=== PATIENT | female | born 2000 | race Hispanic/Latino ===

== ENCOUNTER 2019-11-17 13:25 | Emergency (ER) | payer MEDICAID | END 2019-11-17 14:21 | disposition home or self-care (01) | LOC: EDH 13:25 | DX: U07.1 COVID-19 (principal) | CPT/HCPCS: 36415; 99283; U0003 ==

== ENCOUNTER 2020-12-04 22:16 | Emergency (ER) | payer MEDICAID ==
[~2020-12-04] VITALS: Ht 157.5 cm; Wt 79.8 kg
[2020-12-04 22:23] VITALS: BP 151/97
[2020-12-04] MEDS ORDERED: HYDROCODONE/ACETAMINOPHEN 5/325 MG TAB PO ONE (23:00)
[2020-12-04] MEDS ORDERED: KETOROLAC 60 MG VIAL (30MG/ML) IM ONE (23:00)
[2020-12-04] MEDS ORDERED: HYDROCODONE/ACETAMINOPHEN 5/325 MG TAB ONE (23:11)
[2020-12-04] MEDS ORDERED: PHARMACY COMMUNICATION MISC SCH (23:30)
[2020-12-04] MEDS ORDERED: IBUP-1552 PO (23:41)
== END 2020-12-04 23:46 | disposition home or self-care (01) ==
LOC: EDH 22:16
DX: S00.83XA Contusion of other part of head, initial encounter (principal); S00.03XA Contusion of scalp, initial encounter; I10 Essential (primary) hypertension; Z79.899 Other long term (current) drug therapy; Z88.6 Allergy status to analgesic agent; Y04.8XXA Assault by other bodily force, initial encounter; Y93.89 Activity, other specified; Y92.89 Other specified places as the place of occurrence of the external cause; Y99.8 Other external cause status
CPT/HCPCS: 70450; 70486; 70490; 81025; 96372; 99285; J1885

== ENCOUNTER 2022-07-01 23:19 | Emergency (ER) | payer MEDICAID ==
[~2022-07-01] VITALS: Ht 160 cm; Wt 73.0 kg
[~2022-07-01 23:19] MED LIST: IBUP-1552 PO
[2022-07-02 00:20] LABS: BASOPHILS % (AUTO) 0.1 % (0.0-5.0); EOSINOPHILS % (AUTO) 0.7 % (0.0-8.0); HEMATOCRIT 39.6 % (36-48); LYMPHOCYTES % (AUTO) 6.8 % (21.0-51.0); MEAN CORPUSCULAR HEMOGLOBIN 27.6 pg (27.0-33.0); MEAN CORPUSCULAR HGB CONC 32.6 g/dL (32.0-36.0); MEAN CORPUSCULAR VOLUME 84.6 fL (79-99); MONOCYTES % (AUTO) 3.5 % (3.0-13.0); NEUTROPHILS % (AUTO) 88.4 % (40.0-77.0); PLATELET COUNT (AUTO) 339 K/uL (130-400); RED BLOOD CELL COUNT(AUTO) 4.68 MIL/uL (4.00-5.50); RED CELL DISTRIBUTION WIDTH 14.3 % (11.0-15.5); WHITE BLOOD COUNT (AUTO) 9.9 K/uL (4.8-10.8)
[2022-07-02] MEDS ORDERED: 0.9%NACL 1000ML 1,000 ML IV ONE (00:30)
[2022-07-02 00:38] LABS: CREATININE 0.6 mg/dL (0.5-1.5)
[2022-07-02 00:42] LABS: ALBUMIN 3.9 g/dL (3.5-5.0); TOTAL PROTEIN, SERUM 7.2 g/dL (6.0-8.3)
[2022-07-02] MEDS ORDERED: PROCHLORPERAZINE 10MG/2ML INJ ONE (00:51)
[2022-07-02] MEDS ORDERED: FAMOTIDINE 20MG VIAL IV ONE ×2 (00:52→01:00)
[2022-07-02] MEDS ORDERED: DiphenhydrAMINE HCL 50 MG/ML VIAL ONE (00:52)
[2022-07-02] MEDS ORDERED: DiphenhydrAMINE HCL 50 MG/ML VIAL IV ONE (01:00)
[2022-07-02] MEDS ORDERED: PROCHLORPERAZINE 10MG/2ML INJ IV ONE (01:00)
[2022-07-02 01:06] VITALS: BP 112/82
[2022-07-02 01:10] LABS: APPEARANCE,URINE CLOUDY (CLEAR); BILIRUBIN,URINE NEGATIVE (NEGATIVE); COLOR,URINE YELLOW (YELLOW); GLUCOSE, URINE (UA) NEGATIVE (NEGATIVE); KETONES,URINE NEGATIVE (NEGATIVE); LEUKOCYTE ESTERASE ,URINE 250 Leu/uL (NEGATIVE); NITRATE,URINE NEGATIVE (NEGATIVE); OCCULT BLOOD,URINE LARGE (NEGATIVE); PROTEIN,URINE 10 mg/dL (NEGATIVE); UROBILINOGEN,URINE 0.2 mg/dL (0.2-1.0)
[2022-07-02] MEDS ORDERED: FAMO-136 PO (01:11)
[2022-07-02] MEDS ORDERED: PROC5TAB54 PO (01:11)
[2022-07-02 01:12] LABS: HCG,QUALITATIVE URINE NEGATIVE (NEGATIVE)
[2022-07-02 01:13] LABS: MUCUS,URINE RARE LPF (None Seen); RBC,URINE 26-50 /HPF (0-1); SQUAMOUS EPITHELIAL CELL,UR MANY /HPF (0-2); WBC,URINE 26-50 /HPF (0-1)
== END 2022-07-02 01:43 | disposition home or self-care (01) ==
LOC: EDH 23:19
DX: A08.4 Viral intestinal infection, unspecified (principal); E86.0 Dehydration; Z79.1 Long term (current) use of non-steroidal anti-inflammatories (NSAID)
CPT/HCPCS: 99284; 80053; 83690; 85025; 87088; 81001; 81025; 36415; 96374; 96375; 96361; J1200; J7030; J0780; S0028; J3490

== ENCOUNTER 2023-03-26 17:05 | Emergency (ER) | payer MEDICAID, OTHER ==
[~2023-03-26] VITALS: Ht 160 cm; Wt 79.8 kg
[~2023-03-26 17:05] MED LIST changes: +FAMO-136 PO; +PROC5TAB54 PO
[2023-03-26 17:49] LABS: BASOPHILS # (AUTO) 0.03 K/uL (0.00-0.20); BASOPHILS % (AUTO) 0.4 % (0.0-5.0); EOSINOPHILS # (AUTO) 0.08 K/uL (0.00-0.70); HEMATOCRIT 36.1 % (36-48); IMMATURE GRANULOCYTE ABSOLUTE 0.02 K/uL (0-1); LYMPHOCYTES # (AUTO) 1.3 K/uL (1.0-4.8); LYMPHOCYTES % (AUTO) 15.9 % (21.0-51.0); MEAN CORPUSCULAR HEMOGLOBIN 28.3 pg (27.0-33.0); MEAN CORPUSCULAR HGB CONC 33.5 g/dL (32.0-36.0); MEAN CORPUSCULAR VOLUME 84.3 fL (79-99); MONOCYTES # (AUTO) 0.6 K/uL (0.1-1.0); MONOCYTES % (AUTO) 6.7 % (3.0-13.0); NEUTROPHILS # (AUTO) 6.3 K/uL (1.8-7.7); NEUTROPHILS % (AUTO) 75.8 % (40.0-77.0); PLATELET COUNT (AUTO) 371 K/uL (130-400); RED BLOOD CELL COUNT(AUTO) 4.28 MIL/uL (4.00-5.50); RED CELL DISTRIBUTION WIDTH 14.6 % (11.0-15.5); WHITE BLOOD COUNT (AUTO) 8.2 K/uL (4.8-10.8)
[2023-03-26 18:15] LABS: CREATININE 0.6 mg/dL (0.5-1.5); POTASSIUM 4.1 mmol/L (3.5-5.1)
[2023-03-26 18:43] LABS: ALBUMIN 3.4 g/dL (3.5-5.0); BILIRUBIN,TOTAL 0.1 mg/dL (0.2-1.0); TOTAL PROTEIN, SERUM 7.9 g/dL (6.0-8.3)
[2023-03-26 19:10] VITALS: BP 121/68; PULSE 75; RESP 18; O2SAT 98
[2023-03-26 19:22] LABS: APPEARANCE,URINE CLEAR (CLEAR); BILIRUBIN,URINE NEGATIVE (NEGATIVE); COLOR,URINE LIGHT-YELLOW (YELLOW); GLUCOSE, URINE (UA) NEGATIVE (NEGATIVE); KETONES,URINE NEGATIVE (NEGATIVE); LEUKOCYTE ESTERASE ,URINE 500 Leu/uL (NEGATIVE); NITRATE,URINE NEGATIVE (NEGATIVE); OCCULT BLOOD,URINE NEGATIVE (NEGATIVE); PROTEIN,URINE NEGATIVE (NEGATIVE); UROBILINOGEN,URINE 0.2 mg/dL (0.2-1.0)
[2023-03-26 19:24] LABS: ADD UA MICROSCOPIC YES
[2023-03-26] MEDS ORDERED: CEPH500T PO (19:26)
[2023-03-26 19:36] LABS: BACTERIA,URINE RARE /HPF (None Seen); MUCUS,URINE RARE LPF (None Seen); SQUAMOUS EPITHELIAL CELL,UR MOD /HPF (0-2)
[2023-03-26] MEDS ORDERED: CEFTRIAXONE 1G VIAL IVPB ONE (20:00)
== END 2023-03-26 19:45 | disposition home or self-care (01) ==
LOC: EDH 17:05
DX: O23.41 Unspecified infection of urinary tract in pregnancy, first trimester (principal); N39.0 Urinary tract infection, site not specified; R10.2 Pelvic and perineal pain; Z3A.08 8 weeks gestation of pregnancy
CPT/HCPCS: 99285; 96374; 76801; 80053; 84702; 85025; 87088; 81001; 36415; J0696

== ENCOUNTER 2023-04-18 12:53 | Emergency (ER) | payer MEDICAID ==
[~2023-04-18] VITALS: Ht 160 cm; Wt 79.8 kg
[~2023-04-18 12:53] MED LIST changes: +CEPH500T PO
[2023-04-18] MEDS ORDERED: ONDANSETRON 4MG INJ IVP ONE (14:00)
[2023-04-18] MEDS ORDERED: 0.9%NACL 1000ML 1,000 ML IV ONE (14:00)
[2023-04-18 14:01] LABS: BASOPHILS # (AUTO) 0.02 K/uL (0.00-0.20); BASOPHILS % (AUTO) 0.2 % (0.0-5.0); HEMATOCRIT 34.3 % (36-48); IMMATURE GRANULOCYTE ABSOLUTE 0.04 K/uL (0-1); LYMPHOCYTES # (AUTO) 0.6 K/uL (1.0-4.8); LYMPHOCYTES % (AUTO) 5.8 % (21.0-51.0); MEAN CORPUSCULAR HEMOGLOBIN 28.4 pg (27.0-33.0); MEAN CORPUSCULAR HGB CONC 34.1 g/dL (32.0-36.0); MEAN CORPUSCULAR VOLUME 83.3 fL (79-99); MONOCYTES # (AUTO) 0.7 K/uL (0.1-1.0); MONOCYTES % (AUTO) 6.5 % (3.0-13.0); NEUTROPHILS # (AUTO) 9.2 K/uL (1.8-7.7); NEUTROPHILS % (AUTO) 87.1 % (40.0-77.0); PLATELET COUNT (AUTO) 273 K/uL (130-400); RED BLOOD CELL COUNT(AUTO) 4.12 MIL/uL (4.00-5.50); RED CELL DISTRIBUTION WIDTH 14.2 % (11.0-15.5); WHITE BLOOD COUNT (AUTO) 10.5 K/uL (4.8-10.8)
[2023-04-18 14:14] LABS: CREATININE 0.5 mg/dL (0.5-1.5); POTASSIUM 3.7 mmol/L (3.5-5.1)
[2023-04-18 14:31] LABS: ADD UA MICROSCOPIC YES; APPEARANCE,URINE CLOUDY (CLEAR); BILIRUBIN,URINE NEGATIVE (NEGATIVE); COLOR,URINE YELLOW (YELLOW); GLUCOSE, URINE (UA) NEGATIVE (NEGATIVE); KETONES,URINE 10 mg/dL (NEGATIVE); LEUKOCYTE ESTERASE ,URINE 500 Leu/uL (NEGATIVE); NITRATE,URINE NEGATIVE (NEGATIVE); OCCULT BLOOD,URINE MODERATE (NEGATIVE); PH,URINE 6.5 (5.0-8.0); PROTEIN,URINE 50 mg/dL (NEGATIVE); UROBILINOGEN,URINE 3 mg/dL (0.2-1.0)
[2023-04-18 14:42] LABS: ALBUMIN 3.2 g/dL (3.5-5.0); BILIRUBIN,TOTAL 0.4 mg/dL (0.2-1.0)
[2023-04-18 14:43] LABS: BACTERIA,URINE RARE /HPF (None Seen); MUCUS,URINE MANY LPF (None Seen); SQUAMOUS EPITHELIAL CELL,UR MOD /HPF (0-2); WBC,URINE 51-100 /HPF (0-1)
[2023-04-18] MEDS ORDERED: ACETAMINOPHEN 500 MG TABLET PO ONE (15:30)
[2023-04-18] MEDS ORDERED: CEFTRIAXONE 1G VIAL IV ONE (15:30)
[2023-04-18] MEDS ORDERED: ONDA4TAB10 PO (15:52)
[2023-04-18] MEDS ORDERED: MACR100 PO (15:52)
[2023-04-18 15:56] VITALS: BP 111/67; PULSE 88; RESP 18; O2SAT 100
== END 2023-04-18 16:07 | disposition home or self-care (01) ==
LOC: EDH 12:53
DX: O21.1 Hyperemesis gravidarum with metabolic disturbance (principal); O23.40 Unspecified infection of urinary tract in pregnancy, unspecified trimester; N39.0 Urinary tract infection, site not specified; R07.89 Other chest pain; R10.2 Pelvic and perineal pain; Z88.6 Allergy status to analgesic agent; Z88.8 Allergy status to other drugs, medicaments and biological substances; Z3A.00 Weeks of gestation of pregnancy not specified
CPT/HCPCS: 99284; 96365; 96361; 96375; 80053; 84702; 83690; 85025; 87088; 81001; 36415; 93005; J7030; J0696; J2405

== ENCOUNTER 2023-08-07 05:05 | Observation (INO) | payer MEDICAID ==
[~2023-08-07] VITALS: Ht 160 cm; Wt 88.5 kg
[~2023-08-07 05:05] MED LIST changes: +MACR100 PO; +ONDA4TAB10 PO
[2023-08-07 05:06] VITALS: BP 143/75; PULSE 94; RESP 17
[2023-08-07 05:57] LABS: APPEARANCE,URINE CLOUDY (CLEAR); BILIRUBIN,URINE NEGATIVE (NEGATIVE); COLOR,URINE LIGHT-YELLOW (YELLOW); GLUCOSE, URINE (UA) NEGATIVE (NEGATIVE); KETONES,URINE NEGATIVE (NEGATIVE); LEUKOCYTE ESTERASE ,URINE 25 Leu/uL (NEGATIVE); NITRATE,URINE NEGATIVE (NEGATIVE); OCCULT BLOOD,URINE NEGATIVE (NEGATIVE); PH,URINE 6.5 (5.0-8.0); PROTEIN,URINE 20 mg/dL (NEGATIVE); UROBILINOGEN,URINE 0.2 mg/dL (0.2-1.0)
[2023-08-07 06:00] LABS: ADD UA MICROSCOPIC YES
[2023-08-07] MEDS ORDERED: LACTATED RINGERS 1000ML 1,000 ML IV SCH (06:00)
[2023-08-07 06:01] LABS: BACTERIA,URINE FEW /HPF (None Seen); MUCUS,URINE RARE LPF (None Seen); SQUAMOUS EPITHELIAL CELL,UR FEW /HPF (0-2)
[2023-08-07] MEDS ORDERED: LACTATED RINGERS 1000ML IV SCH (06:30)
== END 2023-08-07 06:30 | disposition home or self-care (01) ==
LOC: EDH 05:05 → LDH 05:06 → EDH 05:14
PROVIDERS: ADMIT Obstetrics & Gynecology; ATTEND Obstetrics & Gynecology
DX: O21.2 Late vomiting of pregnancy (principal); O13.3 Gestational [pregnancy-induced] hypertension without significant proteinuria, third trimester; O26.892 Other specified pregnancy related conditions, second trimester; R19.7 Diarrhea, unspecified; R10.9 Unspecified abdominal pain; Z3A.26 26 weeks gestation of pregnancy; Z88.6 Allergy status to analgesic agent
CPT/HCPCS: 96360; 81001; G0379; G0378; J7120

== ENCOUNTER 2023-10-17 16:51 | Observation (INO) | payer MEDICAID ==
[~2023-10-17] VITALS: Ht 160 cm; Wt 93.0 kg
[~2023-10-17 16:51] MED LIST changes: +ONDA-243 PO; -ONDA4TAB10 PO
[2023-10-17 16:56] VITALS: BP 122/84; PULSE 98; RESP 16
[2023-10-17 17:41] LABS: APPEARANCE,URINE CLOUDY (CLEAR); BILIRUBIN,URINE NEGATIVE (NEGATIVE); COLOR,URINE YELLOW (YELLOW); GLUCOSE, URINE (UA) NEGATIVE (NEGATIVE); KETONES,URINE 5 mg/dL (NEGATIVE); LEUKOCYTE ESTERASE ,URINE 75 Leu/uL (NEGATIVE); NITRATE,URINE NEGATIVE (NEGATIVE); OCCULT BLOOD,URINE NEGATIVE (NEGATIVE); PH,URINE 6.5 (5.0-8.0); PROTEIN,URINE 30 mg/dL (NEGATIVE); UROBILINOGEN,URINE 0.2 mg/dL (0.2-1.0)
[2023-10-17 17:57] LABS: ADD UA MICROSCOPIC YES
[2023-10-17 18:00] LABS: BACTERIA,URINE RARE /HPF (None Seen); CALCIUM OXALATE CRYSTALS,UR RARE /LPF (None Seen); MUCUS,URINE RARE LPF (None Seen); SQUAMOUS EPITHELIAL CELL,UR FEW /HPF (0-2)
[2023-10-17 18:16] LABS: BASOPHILS # (AUTO) 0.02 K/uL (0.00-0.20); BASOPHILS % (AUTO) 0.2 % (0.0-5.0); EOSINOPHILS # (AUTO) 0.05 K/uL (0.00-0.70); EOSINOPHILS % (AUTO) 0.6 % (0.0-8.0); HEMATOCRIT 32.7 % (36-48); LYMPHOCYTES % (AUTO) 10.9 % (21.0-51.0); MEAN CORPUSCULAR HEMOGLOBIN 28.1 pg (27.0-33.0); MEAN CORPUSCULAR VOLUME 85.2 fL (79-99); MONOCYTES # (AUTO) 0.8 K/uL (0.1-1.0); MONOCYTES % (AUTO) 8.7 % (3.0-13.0); NEUTROPHILS # (AUTO) 6.9 K/uL (1.8-7.7); NEUTROPHILS % (AUTO) 78.5 % (40.0-77.0); PLATELET COUNT (AUTO) 314 K/uL (130-400); RED BLOOD CELL COUNT(AUTO) 3.84 MIL/uL (4.00-5.50); RED CELL DISTRIBUTION WIDTH 15.6 % (11.0-15.5); WHITE BLOOD COUNT (AUTO) 8.8 K/uL (4.8-10.8)
[2023-10-17 18:29] LABS: CREATININE 0.4 mg/dL (0.5-1.0); POTASSIUM 3.7 mmol/L (3.5-5.1)
[2023-10-17 18:34] LABS: ALBUMIN 2.6 g/dL (3.5-5.0); BILIRUBIN,TOTAL 0.1 mg/dL (0.2-1.0); TOTAL PROTEIN, SERUM 6.9 g/dL (6.0-8.3)
[2023-10-17 18:41] LABS: INR < 0.93 (0.85-1.15); PARTIAL THROMBOPLASTIN TIME 25.2 SEC (26.3-35.5); PROTHROMBIN TIME 9.9 SEC (9.6-11.6)
[2023-10-17 18:46] LABS: FIBRINOGEN 450 mg/dL (180-350)
== END 2023-10-17 19:00 | disposition home or self-care (01) ==
LOC: EDH 16:51 → LDH 16:52 → EDH 17:02
PROVIDERS: ADMIT Obstetrics & Gynecology; ATTEND Obstetrics & Gynecology
DX: O62.9 Abnormality of forces of labor, unspecified (principal); O24.419 Gestational diabetes mellitus in pregnancy, unspecified control; Z3A.37 37 weeks gestation of pregnancy; Z79.899 Other long term (current) drug therapy; Z86.2 Personal history of diseases of the blood and blood-forming organs and certain disorders involving the immune mechanism
CPT/HCPCS: 84550; 80053; 85025; 85384; 85610; 85730; 87086; 81001; 36415; G0378 ×2; G0379

== ENCOUNTER 2023-11-09 19:46 | Emergency (ER) | payer MEDICAID ==
[~2023-11-09] VITALS: Ht 160 cm; Wt 86.2 kg
[2023-11-09 20:25] LABS: RAPID GROUP A STREP negative (NEGATIVE)
[2023-11-09 20:32] LABS: SARS-CoV-2, RNA, NAAT POSITIVE SARS CoV-2 (NEGATIVE)
[2023-11-09 22:09] VITALS: BP 129/72; PULSE 75; RESP 18; O2SAT 98
== END 2023-11-09 22:07 | disposition home or self-care (01) ==
LOC: EDH 19:46
DX: U07.1 COVID-19 (principal)
CPT/HCPCS: 87635; 87880

== ENCOUNTER 2024-02-13 10:47 | Emergency (ER) | payer MEDICAID ==
[~2024-02-13] VITALS: Ht 160 cm; Wt 86.6 kg
[2024-02-13 11:50] LABS: BASOPHILS # (AUTO) 0.02 K/uL (0.00-0.20); BASOPHILS % (AUTO) 0.4 % (0.0-5.0); EOSINOPHILS # (AUTO) 0.21 K/uL (0.00-0.70); EOSINOPHILS % (AUTO) 3.8 % (0.0-8.0); HEMATOCRIT 34.9 % (36-48); IMMATURE GRANULOCYTE ABSOLUTE 0.02 K/uL (0-1); LYMPHOCYTES # (AUTO) 1.4 K/uL (1.0-4.8); MEAN CORPUSCULAR HEMOGLOBIN 27.3 pg (27.0-33.0); MEAN CORPUSCULAR HGB CONC 33.2 g/dL (32.0-36.0); MEAN CORPUSCULAR VOLUME 82.1 fL (79-99); MONOCYTES # (AUTO) 0.5 K/uL (0.1-1.0); MONOCYTES % (AUTO) 8.7 % (3.0-13.0); NEUTROPHILS # (AUTO) 3.4 K/uL (1.8-7.7); NEUTROPHILS % (AUTO) 60.7 % (40.0-77.0); PLATELET COUNT (AUTO) 348 K/uL (130-400); RED BLOOD CELL COUNT(AUTO) 4.25 MIL/uL (4.00-5.50); RED CELL DISTRIBUTION WIDTH 14.6 % (11.0-15.5); WHITE BLOOD COUNT (AUTO) 5.5 K/uL (4.8-10.8)
[2024-02-13] MEDS: HYDROcodone/APAP 5/325 1 TAB TABLET PO ONE (11:51)
[2024-02-13 12:00] LABS: CREATININE 0.7 mg/dL (0.5-1.0); POTASSIUM 4.2 mmol/L (3.5-5.1)
[2024-02-13 13:18] VITALS: BP 121/78; PULSE 62; RESP 18; TEMP 98; O2SAT 98
[2024-02-13] MEDS ORDERED: BUTA-271 PO (13:20)
== END 2024-02-13 13:46 | disposition home or self-care (01) ==
LOC: EDH 10:47
DX: G44.209 Tension-type headache, unspecified, not intractable (principal); F32.A Depression, unspecified; Z79.899 Other long term (current) drug therapy
CPT/HCPCS: 36415; 70450; 80048; 84703; 85025

== ENCOUNTER 2024-03-01 06:19 | Emergency (ER) | payer MEDICAID ==
[~2024-03-01] VITALS: Ht 160 cm; Wt 87.1 kg
[~2024-03-01 06:19] MED LIST changes: +BUTA-271 PO
[2024-03-01 06:57] LABS: BASOPHILS # (AUTO) 0.02 K/uL (0.00-0.20); BASOPHILS % (AUTO) 0.3 % (0.0-5.0); EOSINOPHILS # (AUTO) 0.01 K/uL (0.00-0.70); EOSINOPHILS % (AUTO) 0.1 % (0.0-8.0); HEMATOCRIT 36.4 % (36-48); IMMATURE GRANULOCYTE ABSOLUTE 0.03 K/uL (0-1); LYMPHOCYTES # (AUTO) 0.7 K/uL (1.0-4.8); LYMPHOCYTES % (AUTO) 8.9 % (21.0-51.0); MEAN CORPUSCULAR HEMOGLOBIN 26.9 pg (27.0-33.0); MEAN CORPUSCULAR HGB CONC 32.7 g/dL (32.0-36.0); MEAN CORPUSCULAR VOLUME 82.2 fL (79-99); MONOCYTES # (AUTO) 0.6 K/uL (0.1-1.0); MONOCYTES % (AUTO) 7.3 % (3.0-13.0); NEUTROPHILS # (AUTO) 6.4 K/uL (1.8-7.7); PLATELET COUNT (AUTO) 336 K/uL (130-400); RED BLOOD CELL COUNT(AUTO) 4.43 MIL/uL (4.00-5.50); RED CELL DISTRIBUTION WIDTH 14.5 % (11.0-15.5); WHITE BLOOD COUNT (AUTO) 7.7 K/uL (4.8-10.8)
[2024-03-01] MEDS: 0.9% NACL 500ML IV.SOLN 500 ML IV ONE (06:58)
[2024-03-01] MEDS: acetaMINOPHEN 500 MG TABLET PO ONE (06:59)
[2024-03-01] MEDS: ondanSETRON 4MG INJ IVP ONE (06:59)
[2024-03-01 07:03] LABS: CREATININE 0.6 mg/dL (0.5-1.0); POTASSIUM 3.5 mmol/L (3.5-5.1)
--- NOTE | 2024-03-01 07:15 | ERN ---
General Chief Complaint: Abdominal Pain Stated Complaint: C/O ABD PAIN WITH NAUSEA, FEVER, HEADACHE Time Seen by MD: 07:05 History of Present Illness Initial Comments 23-year-old female, otherwise healthy, presents for fever, headache, sore throat, nausea, and loose stool. She also reports some generalized abdominal discomfort. She was able to eat yesterday. Allergies: Coded Allergies: No Known Drug Allergies (Unverified Allergy, Unknown, 10/17/23) Home Meds Active Scripts Butalb/Acetaminophen/Caffeine (Esgic 50-325-40 mg Tablet) 50 Mg-325 Mg-40 Mg Tablet, 2 TAB PO Q4H for HEADACHE for 5 Days, #20 TAB 0 Refills TWO TABLETS BY MOUTH P.R.N. HEADACHE, MAXIMUM SIX TABLETS IN 24 HOURS. Prov:MICHAEL COLE NP 02/13/24 Ondansetron (Ondansetron Odt) 4 Mg Tab.rapdis, 4 MG PO Q6HPRN PRN for nausea, #16 TAB 0 Refills Prov:MICHAEL COLE NP 04/18/23 Nitrofurantoin/Nitrofuran Mac (Macrobid) 100 Mg Cap, 1 CAP PO BID for 7 Days, #14 CAP 0 Refills Prov:MICHAEL COLE NP 04/18/23 Cephalexin (Cephalexin) 500 Mg Tablet, 500 MG PO [id number] for 10 Days, #40 TAB Prov:KATERIN GOMEZ NP 03/26/23 Prochlorperazine Maleate (Compazine) 5 Mg Tab, 5 MG PO BID for 2 Days, #4 TAB Prov:STEVEN JOHNSON MD 07/02/22 Famotidine (Pepcid) 20 Mg Tablet, 20 MG PO BID for 30 Days, #60 TAB Prov:STEVEN JOHNSON MD 07/02/22 Ibuprofen (Ibu) 400 Mg Tablet, 600 MG PO TIDAC, #60 TAB Prov:NIKITA ROSALES 12/04/20 Past Medical History Past Medical History: Other Medical History Other: GESTATIONAL DM Past Surgical History: None Social History Social History: Negative Female( History) LMP: Feb 18, 2024 : 2 Para: 1 Aborts: 0 ROS Dictation CONSTITUTIONAL: Fever HEAD/FACE: No signs of trauma. EENT: Nasal congestion and sore throat RESPIRATORY: No cough, no orthopnea, no SOB, no stridor, no wheezing. CARDIOVASCULAR: No chest pain, no edema, no palpitations, no syncope. GASTROINTESTINAL/ABDOMINAL: Generalized abdominal upset, nausea, no vomiting, episode of loose stool GENITOURINARY: No abnormal discharge, no dysuria, no frequent urination, no hematuria. No complaints of pain in the genitals. MUSCULOSKELETAL: No back pain, no gout, no joint pain, no joint swelling, no muscle pain, no muscle stiffness, no neck pain. INTEGUMENTARY: No change in color, no change in hair/nails, no dryness, no lesion, no lumps, no rash. NEUROLOGICAL/PSYCH: No anxiety, not depressed, no emotional problem, no headache, no numbness, no pre-existing deficit, no history of seizures, no tremors, no weakness. HEMATOLOGIC/LYMPHATIC: Not anemic, no history of blood clots, no apparent bleeding, no bruising, glands not swollen. All Systems Negative, Except as Noted. Physical Exam Physical Exam Dictation VITAL SIGNS: Reviewed. GENERAL APPEARANCE: Alert, oriented x3, no acute distress, obese. HEAD AND FACE: Non-traumatic. EYES: PERRL, pink conjunctivas, eyelid no trauma, anterior chamber clear. EARS: Pinnas intact and no signs of trauma or erythema. Ear canals clear and no discharge. TMs no erythema. NOSE: No discharge, no bleeding. OROPHARYNX: Mouth normal, teeth no caries, tongue pink. Pharynx clear, no erythema. Tonsils no exudates, no abscesses noted. Mucous membrane moist. NECK: Supple, non-tender, no thyromegaly, no masses, no JVD, no bruits. BREAST: Deferred. CHEST: No tenderness, no crepitus, no paradoxical movement, no retractions. LUNGS: Clear, well-ventilated, symmetric, no rales, no wheezing, no rhonchi, no stridor, good breath sounds bilaterally. HEART: Regular rate, regular rhythm, no murmur, no gallops. VASCULAR: No peripheral edema. ABDOMEN: Soft, positive bowel sounds, nondistended, no guarding, nontender, no rebound, no masses no hepatomegaly, no splenomegaly, no Bocanegra's sign, no hernias. RECTAL: Deferred. GENITAL: Deferred. NEUROLOGICAL: Normal speech, gross motor function intact, gross sensory function intact. MUSCULOSKELETAL: Neck nontender, full range of motion, back nontender, full range of motion. EXTREMITIES: Nontender, full range of motion. SKIN: Color pink, dry, no turgor, no rash, no lacerations, no abrasions, no contusions. LYMPHATICS: Deferred. Results Laboratory and Microbiology Lab and Micro Result Laboratory Tests Test 03/01/24 06:32 03/01/24 06:47 03/01/24 07:20 Urine Color LIGHT-YELLOW (YELLOW) Urine Appearance CLEAR (CLEAR) Urine pH 6.0 (5.0-8.0) Urine Specific [place] 1.016 (1.001-1.031) Urine Protein 10 mg/dL (NEGATIVE) H Urine Glucose (UA) NEGATIVE mg/dL (NEGATIVE) Urine Ketones NEGATIVE mg/dL (NEGATIVE) Urine Occult Blood NEGATIVE (NEGATIVE) Urine Nitrate NEGATIVE (NEGATIVE) Urine Bilirubin NEGATIVE mg/dL (NEGATIVE) Urine Urobilinogen 0.2 mg/dL (0.2-1.0) Urine Leukocyte Esterase 25 Chris/uL (NEGATIVE) H Urine HCG, Qualitative NEGATIVE (NEGATIVE) White Blood Count 7.7 K/uL (4.8-10.8) Red Blood Count 4.43 MIL/uL (4.00-5.50) Hemoglobin 11.9 g/dL (12.0-16.0) L Hematocrit 36.4 % (36-48) Mean Corpuscular Volume 82.2 fL (79-99) Mean Corpuscular Hemoglobin 26.9 pg (27.0-33.0) L Mean Corpuscular Hemoglobin Concent 32.7 g/dL (32.0-36.0) Red Cell Distribution Width 14.5 % (11.0-15.5) Platelet Count 336 K/uL (130-400) Mean Platelet Volume 8.8 fL (7.5-10.5) Immature Granulocyte % (Auto) 0.4 % (0-1) Neutrophils (%) (Auto) 83.0 % (40.0-77.0) H Lymphocytes (%) (Auto) 8.9 % (21.0-51.0) L Monocytes (%) (Auto) 7.3 % (3.0-13.0) Eosinophils (%) (Auto) 0.1 % (0.0-8.0) Basophils (%) (Auto) 0.3 % (0.0-5.0) Neutrophils # (Auto) 6.4 K/uL (1.8-7.7) Lymphocytes # (Auto) 0.7 K/uL (1.0-4.8) L Monocytes # (Auto) 0.6 K/uL (0.1-1.0) Eosinophils # (Auto) 0.01 K/uL (0.00-0.70) Basophils # (Auto) 0.02 K/uL (0.00-0.20) Absolute Immature Granulocyte (auto 0.03 K/uL (0-1) Nucleated Red Blood Cells 0.0 % (0.0-0.19) Sodium Level 138 mmol/L (136-145) Potassium Level 3.5 mmol/L (3.5-5.1) Chloride Level 101 mmol/L (101-111) Carbon Dioxide Level 26 mmol/L (21-32) Blood Urea Nitrogen 9 mg/dL (7-18) Creatinine 0.6 mg/dL (0.5-1.0) Glomerular Filtration Rate Calc 128 mL/min (>90) Random Glucose 113 mg/dL (70-105) H Total Calcium 8.8 mg/dL (8.5-10.1) Total Bilirubin 0.3 mg/dL (0.2-1.0) Direct Bilirubin 0.1 mg/dL (0.0-0.3) Aspartate Amino Transf (AST/SGOT) 21 U/L (10-37) Alanine Aminotransferase (ALT/SGPT) 64 U/L (12-78) Alkaline Phosphatase 118 U/L (50-136) Total Protein 8.4 g/dL (6.0-8.3) H Albumin 3.8 g/dL (3.5-5.0) Lipase 23 U/L (16-77) Influenza Type A Antigen Negative For Type A Influenza Type B Antigen Negative For Type B SARS-CoV-2 Antigen (Rapid) PRESUMPTIVE NEGATIVE MDM CC: Fever body aches sore throat cough congestion abdominal discomfort Historian: Patient Comorbidities: Obesity Limitations by social determinants of health: None Initial concern for viral URI, sepsis, biliary pathology, other. Vital signs: Initially febrile 101.1 and tachycardic 115. He has improved in the ER. Otherwise stable vital signs. CBC shows mild anemia hemoglobin 11.9, left shift no bands. No leukocytosis. BMP stable. LFTs stable. Lipase stable. UA unremarkable Flu and SARS negative The right upper quadrant ultrasound per my independent interpretation shows no signs of cholecystitis. Patient received IV fluids, Tylenol, Zofran here in the ER. We will DC with OTC medications. Likely a viral syndrome. No surgical or life threats at this time. No signs of sepsis. Patient is agreeable. ED Course Orders Procedure Category Date Status Time Cbc With Differential LAB 03/01/24 In Process 06:24 Basic Metabolic Panel LAB 03/01/24 Complete 06:24 Urinalysis Profile LAB 03/01/24 In Process 06:24 Ondansetron 4mg Inj PHA 03/01/24 Complete (Zofran 4mg Inj) 06:30 0.9% Nacl 500ml PHA 03/01/24 Complete Iv.Soln (Ns 500ml 06:30 Covid19 (Sars Antigen LAB 03/01/24 In Process Rapid) 06:24 Rapid (Group A Strep) LAB 03/01/24 In Process 06:24 Influenza Type A & B, LAB 03/01/24 In Process Rapid 06:24 ,Urine Test LAB 03/01/24 In Process 06:24 Acetaminophen 500mg PHA 03/01/24 Complete Tab (Tylenol 500mg T 07:00 Lipase LAB 03/01/24 Complete 07:06 Hepatic Function Panel LAB 03/01/24 Complete 07:06 Us Abdominal Ruq\Ltd US 03/01/24 Taken 07:06 Current Medications Medications (Trade) Dose Ordered Sig/Alexsandra Route PRN Reason Start Time Stop Time Status Last Admin Dose Admin Acetaminophen (TYLenol 500MG TAB) 1,000 mg ONCE ONCE PO 03/01/24 07:00 03/01/24 07:01 DC 03/01/24 06:59 Ondansetron HCl (zoFRAN 4MG INJ) 4 mg ONCE ONCE IVP 03/01/24 06:30 03/01/24 06:31 DC 03/01/24 06:59 Sodium Chloride 500 ml @ 0 mls/hr ONCE ONCE IV 03/01/24 06:30 03/01/24 06:31 DC 03/01/24 06:58 Vital Signs Date Time Temp Pulse Resp B/P (MAP) Pulse Ox O2 Delivery O2 Flow Rate FiO2 03/01/24 07:16 98.2 102 16 130/86 99 Room Air* 0 21 03/01/24 06:50 98.2 113 18 126/77 98 Room Air* 0 21 03/01/24 06:21 101.1 115 20 125/82 97 Room Air DX & DISP Disposition: Discharge Departure Impression: Primary Impression: Viral syndrome Condition: Stable Additional Instructions: Your symptoms are consistent with a viral syndrome or flu-like illness. You do have a fever here in the ER. Your other vital signs have been stable. Your lab work (CBC, BMP, liver enzymes, lipase, urinalysis, flu, COVID) is unremarkable. The ultrasound does not show any gallstones. You received IV fluids, Tylenol, and Zofran here in the ER. I recommend that you alternate Tylenol (1000 mg) and ibuprofen (800 mg) every 4 hours as needed for pain or fever. Drink plenty of liquids. Gatorade as a good choice. Advance her diet slowly as tolerated. If you have fever or symptoms for longer than 72 hours and total, please follow up with your primary doctor or return to the emergency department. Referrals: REILLY ZHONG MD (PCP) JEFE SAN DO Mar 01, 2024 07:15
[2024-03-01 07:29] LABS: APPEARANCE,URINE CLEAR (CLEAR); BILIRUBIN,URINE NEGATIVE (NEGATIVE); COLOR,URINE LIGHT-YELLOW (YELLOW); GLUCOSE, URINE (UA) NEGATIVE (NEGATIVE); KETONES,URINE NEGATIVE (NEGATIVE); LEUKOCYTE ESTERASE ,URINE 25 Leu/uL (NEGATIVE); NITRATE,URINE NEGATIVE (NEGATIVE); OCCULT BLOOD,URINE NEGATIVE (NEGATIVE); PROTEIN,URINE 10 mg/dL (NEGATIVE); UROBILINOGEN,URINE 0.2 mg/dL (0.2-1.0)
[2024-03-01 07:32] LABS: HCG,QUALITATIVE URINE NEGATIVE (NEGATIVE)
[2024-03-01 07:34] LABS: ALBUMIN 3.8 g/dL (3.5-5.0); BILIRUBIN,DIRECT 0.1 mg/dL (0.0-0.3); BILIRUBIN,TOTAL 0.3 mg/dL (0.2-1.0); TOTAL PROTEIN, SERUM 8.4 g/dL (6.0-8.3)
[2024-03-01 07:46] LABS: ADD UA MICROSCOPIC YES
[2024-03-01 07:46] LABS: COVID19 (SARS ANTIGEN RAPID) PRESUMPTIVE NEGATIVE (NEGATIVE); INFLUENZA TYPE A Negative For Type A (NEGATIVE); INFLUENZA TYPE B Negative For Type B (NEGATIVE)
[2024-03-01 08:11] VITALS: BP 119/79; PULSE 89; RESP 14; TEMP 97.9; O2SAT 98
[2024-03-01 08:36] LABS: MUCUS,URINE RARE LPF (None Seen); SQUAMOUS EPITHELIAL CELL,UR RARE /HPF (0-2)
[2024-03-01 08:55] LABS: RAPID GROUP A STREP positive (NEGATIVE)
--- NOTE | 2024-03-01 08:57 | NUR ---
PT DISCHARGED, CRITICAL LAB RESULT CALLED BY LAB TO MYSELF (STREP POSITIVE). MADE ER AWARE, NO FURTHER TX AT THIS TIME.
--- NOTE | 2024-03-01 09:07 | HMCIMG ---
US ABDOMINAL RUQ\E\LTD HISTORY: Right upper quadrant pain COMPARISON: None TECHNIQUE: Right upper quadrant abdominal ultrasound study was performed. FINDINGS: Liver measures 14.5 cm. The visualized portion of the pancreas is within normal limits. Liver is echogenic consistent with liver parenchymal disease. No gallstone is seen. Common duct measures 4 mm. No evidence of gallbladder wall thickening is seen. Right kidney measures 11.9 x 4.4 x 5.1 cm. No hydronephrosis is seen of the right kidney. IMPRESSION: 1. No gallstones or ductal dilatation is seen. 2. No hydronephrosis is seen.
== END 2024-03-01 08:13 | disposition home or self-care (01) ==
LOC: EDH 06:19
DX: B34.9 Viral infection, unspecified (principal); E66.9 Obesity, unspecified; Z20.822 Contact with and (suspected) exposure to COVID-19; Z79.899 Other long term (current) drug therapy
CPT/HCPCS: 99285; 96374; 76705; 96361; 87426; 80076; 80048; 83690; 85025; 87880; 87804 ×2; 81001; 81025; 36415; J7040; J2405